=== PATIENT | female | born 1995 | race Caucasian/White ===

== ENCOUNTER 2018-06-13 09:46 | Emergency (ER) | payer MEDICAID ==
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
--- NOTE | 2018-06-13 12:14 | RADIOLOGY REPORT (SQ) ---
EXAM DESCRIPTION: RIBS LEFT W/PA CHEST COMPLETED DATE/TIME: 06/13/2018 11:31 am REASON FOR STUDY: bronchitis, sneezed, felt L rib "pop" COMPARISON: None. TECHNIQUE: Frontal view of the chest and additional views of the left ribs acquired. NUMBER OF VIEWS: PA chest Left rib detail three views LIMITATIONS: None. FINDINGS: FRONTAL CXR: No pneumothorax. No pleural effusion. No atelectasis or infiltrates. Cardi ac silhouette size normal. No hilar enlargement. RIBS: Old healed lateral left 5th 6th and 7th rib fractures with bony callus. No acute fracture OTHER: No other significant finding. IMPRESSION: No acute rib fractures. No acute findings on chest film. COMMENT: SITE OF TRAUMA/COMPLAINT MARKED/STAMP COMPLETED: Yes TECHNICAL DOCUMENTATION: JOB ID: [id number] [employer]- All Rights Reserved Reading location - IP/workstation name: [email or web address]
[2018-06-13 12:35] VITALS: BP 115/69
== END 2018-06-13 12:40 | disposition home or self-care (01) ==
LOC: ER 09:46
DX: R07.81 Pleurodynia (principal); R06.02 Shortness of breath
CPT/HCPCS: 99283

== ENCOUNTER 2018-07-05 11:18 | Emergency (ER) | payer MEDICAID ==
[2018-07-05] MEDS ORDERED: IBUPROFEN 800 MG TABLET PO ONE (11:57)
--- NOTE | 2018-07-05 12:10 | ER Document Report ---
HPI - HPI Patient complains to provider of: Rib pain Time Seen by Provider: 07/05/18 11:49 Onset/Duration: Persistent Quality of pain: Achy Pain Level: 5 Context: Patient states that she has a history of rib fracture previously in which she reinjured the ribs 2 weeks ago and had a diagnosed fracture 2 weeks ago. Patient states that 2 days ago she was lifting a laundry basket that was about 15 pounds and it caused her to have increased rib tenderness. Patient denies any dyspnea symptoms. Patient denies taking any medications for her pain symptoms today. Associated Symptoms: Other - Left rib tenderness. denies: Shortness of breath Exacerbated by: Movement Relieved by: Denies Similar symptoms previously: Yes Recently seen / treated by doctor: Yes - ROS ROS below otherwise negative: Yes Systems Reviewed and Negative: Yes All other systems reviewed and negative - CONSTITUTIONAL Constitutional: DENIES: Fever, Chills - CARDIOVASCULAR Cardiovascular: REPORTS: Chest pain - left rib pain - RESPIRATORY Respiratory: DENIES: Trouble Breathing, Coughing - GASTROINTESTINAL Gastrointestinal: DENIES: Abdominal Pain, Nausea - REPRODUCTIVE Reproductive: DENIES: : - MUSCULOSKELETAL Musculoskeletal: DENIES: Extremity pain, Back Pain - DERM Skin Color: Normal Skin Problems: None Past Medical History - General Information source: Patient - Social History Smoking Status: Current Every Day Smoker Smoking Education Provided: Yes Frequency of alcohol use: None Drug Abuse: Marijuana Occupation: None Lives with: Family Family History: Reviewed & Not Pertinent Patient has suicidal ideation: No Patient has homicidal ideation: No Pulmonary Medical History: Reports: Hx Bronchitis, Hx Pneumonia Renal/ Medical History: Denies: Hx Peritoneal Dialysis Psychiatric Medical History: Reports: Hx Attention Deficit Hyperactivity Disorder, Hx Depression Past Surgical History: Reports: Hx Oral Surgery - wisdom Vertical Provider Document - CONSTITUTIONAL Agree With Documented VS: Yes Exam Limitations: No Limitations General Appearance: WD/WN, No Apparent Distress - INFECTION CONTROL TRAVEL OUTSIDE OF THE [place] IN LAST 30 DAYS: No - HEENT HEENT: Atraumatic, Normocephalic - NECK Neck: Normal Inspection, Supple - RESPIRATORY Respiratory: Breath Sounds Normal, No Respiratory Distress. negative: Chest Non-Tender - Left lateral lower costal tenderness, no ecchymosis, no subcutaneous emphysema, no crepitus - CARDIOVASCULAR Cardiovascular: Regular Rate, Regular Rhythm, No Murmur - GI/ABDOMEN Gastrointestinal: Abdomen Soft, Abdomen Non-Tender - BACK Back: Normal Inspection - MUSCULOSKELETAL/EXTREMETIES Musculoskeletal/Extremeties: VIRY GARCIA - NEURO Level of Consciousness: Awake, Alert, Appropriate Motor/Sensory: No Motor Deficit - DERM Integumentary: Warm, Dry, No Rash Course - Re-evaluation Re-evalutation: 07/05/18 12:[address] Shannon regarding patient's radiology report finding. Recommends pain control and providing with incentive spirometer 07/05/18 Patient at discharge is requesting different medication other than the anti- inflammatory and the topical lidocaine patch. Patient states she knows these medications will not work even though she has not had them at all today to treat her pain symptoms. Patient became tearful insisting that she needed something like [place] that she had been prescribed last time she had been seen for this issue. Patient advised that she does not have an acute fracture but that she has a healing fracture at this time. Patient advised that it is unreasonable to expect to be on continued narcotics. Of note patient had been in the ER earlier the same day with her significant other who was the patient. During the entire visit patient appeared to be comfortable, was laughing and joking in no acute distress. Patient reports that the inciting event that worsened her pain occurred 2 days ago. Patient advised that no narcotics would be written today. Patient also takes a benzodiazepine drug and patient was advised that mixing these medications together can be dangerous. Patient encouraged to see her primary doctor if she wants to have her medications adjusted. - Vital Signs Vital signs: Temp Pulse Resp BP Pulse Ox 98.6 F 69 15 112/55 L 100 07/05/18 11:37 07/05/18 11:37 07/05/18 11:37 07/05/18 11:37 07/05/18 11:37 - Diagnostic Test Radiology reviewed: Image reviewed, Reports reviewed Discharge - Discharge Clinical Impression: Subacute left sixth and seventh rib frac Condition: Stable Disposition: HOME, SELF-CARE Instructions: Rib Injuries and Fractures ([facility]) Additional Instructions: Return immediately for any new or worsening symptoms Followup with your primary care provider, call tomorrow to make a followup appointment Use incentive spirometer every hour while awake Prescriptions: Naproxen [Naprosyn 250 Nmg Tablet] 1 tab PO BID #14 tablet Forms: Smoking Cessation Education Referrals: [facility] [Provider Group] - Follow up tomorrow
--- NOTE | 2018-07-05 12:38 | RADIOLOGY REPORT (SQ) ---
EXAM DESCRIPTION: RIBS LEFT W/PA CHEST COMPLETED DATE/TIME: 07/05/2018 12:23 pm REASON FOR STUDY: L rib pain, hx fx COMPARISON: 06/13/2018. TECHNIQUE: Frontal view of the chest and additional views of the left ribs acquired. NUMBER OF VIEWS: Three view. LIMITATIONS: None. FINDINGS: FRONTAL CXR: No pneumothorax. No pleural effusion. No atelectasis or infiltrates. RIBS: Subacute fracture of the posterolateral 6th rib with callus formation and probable subacute fra cture of the lateral 7th rib. OTHER: No other significant finding. IMPRESSION: SUBACUTE FRACTURES OF THE POSTEROLATERAL 6TH RIB AND OF THE LATERAL 7TH RIB. NO ACUTE F INDINGS. COMMENT: SITE OF TRAUMA/COMPLAINT MARKED/STAMP COMPLETED: YES. TECHNICAL DOCUMENTATION: JOB ID: [id number] [employer]- All Rights Reserved Reading location - IP/workstation name: [email or web address]
[2018-07-05] MEDS ORDERED: LIDOCAINE 5% (700 MG) TRANSDERMAL ADH..PATCH TP ONE (13:00)
[2018-07-05 13:40] VITALS: BP 112/59
== END 2018-07-05 13:42 | disposition home or self-care (01) ==
LOC: ER 11:18
DX: S22.42XD Multiple fractures of ribs, left side, subsequent encounter for fracture with routine healing (principal); R07.81 Pleurodynia; X58.XXXD Exposure to other specified factors, subsequent encounter; F17.200 Nicotine dependence, unspecified, uncomplicated
CPT/HCPCS: 99283; 71101; J3490 ×2

== ENCOUNTER 2018-12-03 07:12 | Emergency (ER) | payer MEDICAID ==
[2018-12-03 07:19] VITALS: BP 126/67
--- NOTE | 2018-12-03 07:55 | ER Document Report ---
ED General - General Chief Complaint: Shoulder Pain Stated Complaint: RIGHT SHOULDER PAIN Time Seen by Provider: 12/03/18 07:55 Primary Care Provider: YRAN TRAN MD [COMMUNITY BASED STAFF] - Follow up in 3-5 days (PRIMARY CARE. ) Notes: Patient is a 23-year-old female that presents to the emergency department for chief complaint of right shoulder and back pain after coughing. Patient states that she has been having a bad cough for the past few days, and last night she said she was coughing really hard and felt like she pulled a muscle in her back, she did place warm compress/heating pad and now has some ice on it which is helping to a degree but she wanted to make sure nothing else was wrong. She denies feeling short of breath, chest pain, fevers, chills, night sweats, her cough has been dry, and she denies having any recent nausea,, lightheadedness or dizziness. She currently rates her pain as a 3 out of 10 describes as an aching pain, worse with range of motion of her shoulder. Past Medical History: Denies chronic medical conditions Past Surgical History: Denies surgical history Social History: Admits to marijuana use, denies tobacco or illicit drug use. Family History: Reviewed and noncontributory for presenting illness Allergies: Reviewed, see documented allergy list. REVIEW OF SYSTEMS: Other than noted above, the 12 point review of systems was reviewed with the patient and were negative, all pertinent findings are included in the HPI. PHYSICAL EXAMINATION: Vital signs reviewed, nursing noted reviewed. GENERAL: Well-appearing, well-nourished and in no acute distress. HEAD: Atraumatic, normocephalic. EYES: Eyes appear normal, extraocular movements intact, sclera anicteric, conjunctiva are normal. ENT: nares patent, oropharynx clear without exudates. Moist mucous membranes. NECK: Normal range of motion, supple without lymphadenopathy LUNGS: Breath sounds clear to auscultation bilaterally and equal. No wheezes rales or rhonchi. HEART: Regular rate and rhythm without murmurs ABDOMEN: Soft, nontender, normoactive bowel sounds. No rebound, guarding, or rigidity. No masses appreciated. Back: Tenderness to palpation to the right rhomboid muscles and over the trapezius, this is reproducible. No midline tenderness to the thoracic or lumbar spine. EXTREMITIES: Nontender, good range of motion, the right shoulder has good range of motion, nontender, normal and negative Pak and empty can testing, neurovascular intact distally in all extremities, essentially unremarkable extremity exam. NEUROLOGICAL: No focal neurological deficits. Moves all extremities spontaneously Motor and sensory grossly intact on exam. PSYCH: Normal mood, normal affect. SKIN: Warm, Dry, normal turgor, no rashes or lesions noted on exposed skin TRAVEL OUTSIDE OF THE [place] IN LAST 30 DAYS: No - Related Data Allergies/Adverse Reactions: No Known Allergies Allergy (Verified 06/13/18 09:47) Past Medical History - Social History Smoking Status: Never Smoker Frequency of alcohol use: None Drug Abuse: Marijuana Family History: Reviewed & Not Pertinent Patient has suicidal ideation: No Patient has homicidal ideation: No Pulmonary Medical History: Reports: Hx Bronchitis, Hx Pneumonia Renal/ Medical History: Denies: Hx Peritoneal Dialysis Psychiatric Medical History: Reports: Hx Attention Deficit Hyperactivity Disorder, Hx Depression Past Surgical History: Reports: Hx Oral Surgery - wisdom Physical Exam - Vital signs Vitals: Temp Pulse Resp BP Pulse Ox 98 F 94 16 126/67 H 100 12/03/18 07:16 12/03/18 07:16 12/03/18 07:16 12/03/18 07:16 12/03/18 07:16 Course - Re-evaluation Re-evalutation: Patient seen and examined, vital signs reviewed, patient reproducible tenderness to the trapezius and rhomboid muscles of her right shoulder, likely muscle strain from coughing. Patient is feeling better after receiving naproxen, I did obtain chest x-ray to rule out possible pneumothorax is because of the patient's pain, and this was negative reviewed by myself and the radiologist. Patient appeared improved, and was discharged to follow-up with her primary care physician, and advised to take [id number] Motrin, and given a prescription for Flexeril to try to take at home as well. Chest X-Ray 12/03/18 08:10 IMPRESSION: No acute abnormality of the lungs. No focal airspace opacity. - Vital Signs Vital signs: Temp Pulse Resp BP Pulse Ox 98 F 94 16 126/67 H 100 12/03/18 07:16 12/03/18 07:16 12/03/18 07:16 12/03/18 07:16 12/03/18 07:16 Discharge - Discharge Clinical Impression: Cough Right shoulder strain Qualifiers: Encounter type: initial encounter Qualified Code(s): S46.911A - Strain of unspecified muscle, fascia and tendon at shoulder and upper arm level, right arm, initial encounter Condition: Stable Disposition: HOME, SELF-CARE Instructions: Upper Back Strain ([facility]) Prescriptions: Cyclobenzaprine HCl [Flexeril 10 mg Tablet] 10 mg PO TIDP PRN #15 tab PRN Reason: SHOULDER/BACK PAIN Referrals: RYAN TRAN MD [COMMUNITY BASED STAFF] - Follow up in 3-5 days (PRIMARY CARE. )
[2018-12-03] MEDS ORDERED: NAPROXEN 250 MG TABLET PO ONE (08:10)
--- NOTE | 2018-12-03 08:43 | RADIOLOGY REPORT (SQ) ---
EXAM DESCRIPTION: CHEST 2 VIEWS COMPLETED DATE/TIME: 12/03/2018 8:19 am REASON FOR STUDY: cough COMPARISON: None. EXAM PARAMETERS: NUMBER OF VIEWS: two views TECHNIQUE: Digital Frontal and Lateral radiographic views of the chest acquired. RADIATION DOSE: NA LIMITATIONS: none FINDINGS: LUNGS AND PLEURA: No opacities, masses or pneumothorax. No pleural effusion. MEDIASTINUM AND HILAR STRUCTURES: No masses or contour abnormalities. HEART AND VASCULAR STRUCTURES: Heart normal size. No evidence for failure. BONES: Callused fracture deformity of the left 7th rib. HARDWARE: None in the chest. OTHER: No other significant finding. IMPRESSION: No acute abnormality of the lungs. No focal airspace opacity. TECHNICAL DOCUMENTATION: JOB ID: [id number] [employer]- All Rights Reserved Reading location - IP/workstation name: [email or web address]
== END 2018-12-03 09:22 | disposition home or self-care (01) ==
LOC: ER 07:12
DX: S46.911A Strain of unspecified muscle, fascia and tendon at shoulder and upper arm level, right arm, initial encounter (principal); R05 Cough; F12.90 Cannabis use, unspecified, uncomplicated; F90.9 Attention-deficit hyperactivity disorder, unspecified type
CPT/HCPCS: 99283; 71046; J3490

== ENCOUNTER 2019-05-24 08:30 | Emergency (ER) | payer OTHER, MEDICAID ==
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
[2019-05-24 10:24] VITALS: BP 130/76
== END 2019-05-24 10:23 | disposition home or self-care (01) ==
LOC: ER 08:30
DX: S16.1XXA Strain of muscle, fascia and tendon at neck level, initial encounter (principal); M54.5 Low back pain; M79.10 Myalgia, unspecified site; V43.52XA Car driver injured in collision with other type car in traffic accident, initial encounter
CPT/HCPCS: 99284; 72125; L0120

== ENCOUNTER 2019-06-15 08:34 | Emergency (ER) | payer MEDICAID, OTHER ==
[2019-06-15] MEDS ORDERED: ONDANSETRON 4 MG TAB.RAPDIS PO ONE (09:53)
--- NOTE | 2019-06-15 09:56 | ER Document Report ---
HPI - HPI Patient complains to provider of: Vomiting and diarrhea Time Seen by Provider: 06/15/19 09:49 Onset: Other - 4 days Quality of pain: No pain Pain Level: 0 Context: 23-year-old female presents emergency department with complaints of nausea vomiting diarrhea that started on . She reports she is feeling better now. Denies vomiting today. Reports a little diarrhea still earlier. Reports no recent antibiotics not been on a trip of the country recently. Did not receive her flu vaccine. Denies abdominal pain. Denies pain with void. Denies fever. Patient reports she is feeling better today has drank Pedialyte and not vomited. 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 Lives with: Family Family History: Reviewed & Not Pertinent Patient has suicidal ideation: No Patient has homicidal ideation: No Pulmonary Medical History: Reports: Hx Bronchitis, Hx Pneumonia Renal/ Medical History: Denies: Hx Peritoneal Dialysis Psychiatric Medical History: Reports: Hx Attention Deficit Hyperactivity Di sorder, Hx Depression Past Surgical History: Reports: Hx Oral Surgery - wisdom Vertical Provider Document - CONSTITUTIONAL Agree With Documented VS: Yes Exam Limitations: No Limitations General Appearance: WD/WN, No Apparent Distress - INFECTION CONTROL TRAVEL OUTSIDE OF THE [place] IN LAST 30 DAYS: No - HEENT HEENT: Atraumatic, Normocephalic. negative: Conjuctival Injection, Pharyngeal Erythema - NECK Neck: Normal Inspection, Supple. negative: Lymphadenopathy-Left, Lymphadenopathy-Right - RESPIRATORY Respiratory: Breath Sounds Normal, No Respiratory Distress - CARDIOVASCULAR Cardiovascular: Regular Rate - GI/ABDOMEN Gastrointestinal: Abdomen Soft, Abdomen Non-Tender - MUSCULOSKELETAL/EXTREMETIES Musculoskeletal/Extremeties: MAEW, FROM, Non-Tender - NEURO Level of Consciousness: Awake, Alert, Appropriate Motor/Sensory: No Motor Deficit - DERM Integumentary: Warm, Dry Course - Re-evaluation Re-evalutation: 06/15/19 15:42 Patient presents emergency department with couple days of feeling nausea vomiting little diarrhea but feels better today. Flu test negative. Patient was prescribed some Zofran instructed on importance of fluids and return for concerns. She verbalized understanding to all instructions. - Vital Signs Vital signs: Temp Pulse Resp BP Pulse Ox 98.1 F 71 18 116/68 96 06/15/19 09:02 06/15/19 09:02 06/15/19 09:02 06/15/19 09:02 06/15/19 09:02 Discharge - Discharge Clinical Impression: Nausea vomiting and diarrhea Condition: Stable Disposition: HOME, SELF-CARE Instructions: Antinausea Medication ([facility]), Diarrhea, Nonspecific ([facility]), Vomiting ([facility]) Additional Instructions: *You have been evaluated for nausea/vomiting/diarrhea *Take medication as prescribed *Over the counter anti-diarrheal as indicated *Ensure adequate fluid intake as discussed to prevent dehydration *Follow up with a primary care provider within 1 week for recheck *Return to ED for worsening condition, changes, needs
[2019-06-15 10:29] LABS: A TYPE INFLUENZA AG NEGATIVE (NEGATIVE); B INFLUENZA AG NEGATIVE (NEGATIVE)
[2019-06-15] MEDS ORDERED: ONDANSETRON ODT 4 MG TAB (6 TAB/ER DISP) PO PRN (11:13)
[2019-06-15 11:23] VITALS: BP 119/77
== END 2019-06-15 11:37 | disposition home or self-care (01) ==
LOC: ER 08:34
DX: R11.2 Nausea with vomiting, unspecified (principal); R19.7 Diarrhea, unspecified
CPT/HCPCS: 99284; 87804; S0119

== ENCOUNTER 2019-06-26 12:37 | Emergency (ER) | payer MEDICAID ==
[2019-06-26] MEDS ORDERED: IBUPROFEN 800 MG TABLET PO ONE (14:11)
--- NOTE | 2019-06-26 14:16 | ER Document Report ---
HPI - HPI Patient complains to provider of: Left ankle pain Time Seen by Provider: 06/26/19 14:09 Onset: Just prior to arrival Onset/Duration: Sudden Quality of pain: Achy Context: Patient presents emergency department with complaints of left ankle pain. Reports that she was up on a step ladder and fell off rolling her ankle. Denies past medical history of injury to ankle. Denies other symptoms such as fever vomiting diarrhea. 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 IN LAST 30 DAYS: No - HEENT HEENT: Atraumatic, Normocephalic - NECK Neck: Supple - RESPIRATORY Respiratory: No Respiratory Distress - CARDIOVASCULAR Cardiovascular: Regular Rate - MUSCULOSKELETAL/EXTREMETIES Musculoskeletal/Extremeties: MAEW, FROM, Tender - Left lateral ankle tender to palpate no obvious deformity no swelling no erythema no warmth, good pedal pulse, <2 sec - NEURO Level of Consciousness: Awake, Alert, Appropriate Motor/Sensory: No Motor Deficit Course - Re-evaluation Re-evalutation: 06/26/19 14:50 23-year-old female presents with left ankle pain after she fell off her stepstoo l while painting and rolled her ankle. X-rays negative. No obvious deformity to the ankle. Good pedal pulse cap refill less than 2 seconds. Ankle X-Ray 06/26/19 14:11 IMPRESSION: NEGATIVE STUDY OF THE LEFT ANKLE. NO RADIOGRAPHIC EVIDENCE OF ACUTE INJURY. X-ray negative. Patient was instructed on this instructed on Shashank wrap crutches for comfort rest ice elevate the ankle. Follow-up with orthopedics for continued pain. She verbalized understanding to all instructions. - Vital Signs Vital signs: Temp Pulse Resp BP Pulse Ox 98.4 F 72 16 113/64 100 06/26/19 13:15 06/26/19 13:15 06/26/19 13:15 06/26/19 13:15 06/26/19 13:15 - Diagnostic Test Radiology reviewed: Image reviewed, Reports reviewed Procedures - Immobilization Left Ankle Immobilizer type: Shashank wrap Performed by: PCT Post-Proc Neuro Vasc Exam: Unchanged from pre-exam Alignment checked and good: Yes Discharge - Discharge Clinical Impression: Left ankle pain Qualifiers: Chronicity: acute Qualified Code(s): M25.572 - Pain in left ankle and joints of left foot Condition: Stable Disposition: HOME, SELF-CARE Instructions: Shashank Wrap ([facility]), Use of Crutches ([facility]), Use of Wfni-Adg-Gkyrcsi Ibuprofen ([facility]), Ice & Elevation ([facility]) Additional Instructions: *You have been evaluated for an ankle injury *The x-ray was negative for an acute fracture *Rest/Ice/Elevate your ankle *Maintain the shashank wrap for comfort for three days *Use your crutches *Follow up with orthopedics for continued pain within one week *Take motrin as indicated *Return to ED for worsening condition, changes, needs Forms: Return to Work Referrals: ELADIO WILDER PA-C [Primary Care Provider] - Follow up in 1 week
--- NOTE | 2019-06-26 14:42 | RADIOLOGY REPORT (SQ) ---
EXAM DESCRIPTION: ANKLE LEFT COMPLETE COMPLETED DATE/TIME: 06/26/2019 2:26 pm REASON FOR STUDY: fall rolled ankle pain COMPARISON: None. NUMBER OF VIEWS: Three views. TECHNIQUE: AP, lateral, and oblique radiographic images acquired of the left ankle. LIMITATIONS: None. FINDINGS: MINERALIZATION: Normal. BONES: No acute fracture or dislocation. No worrisome bone lesions. JOINTS: No effusions. SOFT TISSUES: No soft tissue swelling. No foreign body. OTHER: No other significant finding. IMPRESSION: NEGATIVE STUDY OF THE LEFT ANKLE. NO RADIOGRAPHIC EVIDENCE OF ACUTE INJURY. TECHNICAL DOCUMENTATION: JOB ID: [id number] [employer]- All Rights Reserved Reading location - IP/workstation name: [email or web address]
[2019-06-26 15:19] VITALS: BP 121/71
== END 2019-06-26 15:18 | disposition home or self-care (01) ==
LOC: ER 12:37
DX: M25.572 Pain in left ankle and joints of left foot (principal); W10.9XXA Fall (on) (from) unspecified stairs and steps, initial encounter; F17.200 Nicotine dependence, unspecified, uncomplicated
CPT/HCPCS: 99283; 73610; J3490